=== PATIENT | female | born 1995 | race Caucasian/White ===

== ENCOUNTER 2023-12-07 07:43 | Emergency (ER) | payer OTHER ==
[~2023-12-07] VITALS: Ht 162.6 cm; Wt 70.4 kg
[2023-12-07 08:05] VITALS: PULSE 115; RESP 18; TEMP 98.9
[2023-12-07] MEDS: SODIUM CHLORIDE 0.9% 1000ML 1,000 ML IV STA (09:08)
[2023-12-07] MEDS: ONDANSETRON HCL INJ 2MG/ML 2ML 2 MG/ML VIAL IV STA (09:09)
[2023-12-07] MEDS: FAMOTIDINE 20 MG/2 ML VIAL IV STA (09:17)
[2023-12-07] MEDS: KETOROLAC TROMETHAMINE 30 MG/ML VIAL IV STA (09:18)
[2023-12-07] MEDS ORDERED: IOPAMIDOL 370 MG/ML 100 ML INFUS..BTL INJ ONE (11:09)
[2023-12-07] MEDS ORDERED: ONDANSETRON ODT4 MG PO (12:00)
[2023-12-07] MEDS ORDERED: DICYCLOMINE HCL20 MG PO (12:01)
[2023-12-07 12:12] VITALS: BP 116/69; PULSE 83; RESP 18; TEMP 99.5; O2SAT 97
== END 2023-12-07 12:13 | disposition home or self-care (01) ==
LOC: FSED 08:01
DX: R11.2 Nausea with vomiting, unspecified (principal); K52.9 Noninfective gastroenteritis and colitis, unspecified; K59.00 Constipation, unspecified; T50.995A Adverse effect of other drugs, medicaments and biological substances, initial encounter
CPT/HCPCS: 74177; 80053; 80076; 81003; 81025; 85025; 99284; J1885; J2405; J7030; Q9967